=== PATIENT | female | born 1980 | race Caucasian/White ===

== ENCOUNTER 2019-09-06 20:41 | Emergency (ER) | payer SELFPAY ==
[~2019-09-06] VITALS: Ht 167.6 cm; Wt 68.0 kg
[2019-09-06 20:52] VITALS: Ht 167.6 cm; Wt 68.0 kg
[2019-09-07 00:19] VITALS: BP 123/68
== END 2019-09-07 00:19 | disposition home or self-care (01) ==
LOC: ED 20:41
DX: S16.1XXA Strain of muscle, fascia and tendon at neck level, initial encounter (principal); S09.8XXA Other specified injuries of head, initial encounter; E11.9 Type 2 diabetes mellitus without complications; Y04.8XXA Assault by other bodily force, initial encounter; Y93.89 Activity, other specified; Y92.89 Other specified places as the place of occurrence of the external cause; Y99.8 Other external cause status
CPT/HCPCS: J2405; J3010; J7030; Q0092

== ENCOUNTER 2020-02-29 17:47 | Emergency (ER) | payer SELFPAY ==
[~2020-02-29] VITALS: Ht 160 cm; Wt 71.7 kg
[2020-02-29 17:49] VITALS: Ht 160 cm; Wt 71.7 kg
[2020-02-29 23:11] VITALS: BP 115/65
== END 2020-02-29 23:11 | disposition home or self-care (01) ==
LOC: ED 17:47
DX: U07.1 COVID-19 (principal); J12.89 Other viral pneumonia; E11.9 Type 2 diabetes mellitus without complications
CPT/HCPCS: 82962; J0456; J0696; J7050; Q0092; U0003-CS